=== PATIENT | male | born 1990 | race Caucasian/White ===

== ENCOUNTER 2017-12-17 16:45 | Emergency (ER) | payer MEDICAID | END 2017-12-17 20:08 | disposition home or self-care (01) | LOC: FTE 16:45 | DX: D17.9 Benign lipomatous neoplasm, unspecified (principal) | CPT/HCPCS: 72100; 76536; 99284-25 ==

== ENCOUNTER 2017-12-22 08:51 | Emergency (ER) | payer MEDICAID ==
[2017-12-22] MEDS: LIDOCAINE/MYLANTA 40 ML BTL PO (09:18)
[2017-12-22] MEDS: ONDANSETRON (ODT) 4 MG TAB ODT (09:19)
[2017-12-22] MEDS: FAMOTIDINE 20 MG TAB PO (09:19)
== END 2017-12-22 09:50 | disposition home or self-care (01) ==
LOC: FTE 08:51
DX: K21.9 Gastro-esophageal reflux disease without esophagitis (principal)
CPT/HCPCS: 99283; Z7610